=== PATIENT | female | born 1970 | race Caucasian/White ===

== ENCOUNTER 2017-05-14 15:30 | Emergency (ER) | payer OTHER ==
[~2017-05-14] VITALS: Ht 172.7 cm; Wt 123.7 kg
[2017-05-14] MEDS ORDERED: SODIUM CHLORIDE FLUSH 10ML SYR IVF ONE (16:00)
[2017-05-14] MEDS ORDERED: MORPHINE SULFATE 4 MG/ML, 1ML IVPush PRN (16:00)
[2017-05-14] MEDS ORDERED: ONDANSETRON 2MG/ML, 2ML IVPush ONE (16:00)
[2017-05-14] MEDS ORDERED: DIAZEPAM 5 MG TABLET PO ONE (16:00)
[2017-05-14] MEDS ORDERED: KETOROLAC 30 MG/1 ML IM ONE (16:00)
[2017-05-14] MEDS ORDERED: OMEP20TA62 PO (16:00)
[2017-05-14] MEDS ORDERED: HYDROcodone/APAP 5/325 TABLET PO ONE (16:00)
[2017-05-14 16:07] LABS: BLOOD UREA NITROGEN 10 mg/dL (7-18)
[2017-05-14] MEDS ORDERED: DIAZEPAM 5 MG TABLET ONE (16:12)
[2017-05-14 16:13] LABS: ASPARTATE AMINO TRANSFERASE 44 U/L (15-37)
[2017-05-14] MEDS ORDERED: KETOROLAC 30 MG/1 ML ONE (16:13)
[2017-05-14] MEDS ORDERED: HYDROcodone/APAP 5/325 TABLET ONE (16:13)
[2017-05-14 17:09] VITALS: BP 128/74
== END 2017-05-14 17:11 | disposition home or self-care (01) ==
LOC: ED 17:00
DX: S39.012A Strain of muscle, fascia and tendon of lower back, initial encounter (principal); I45.6 Pre-excitation syndrome; X58.XXXA Exposure to other specified factors, initial encounter; Y93.89 Activity, other specified; Y99.9 Unspecified external cause status; Y92.89 Other specified places as the place of occurrence of the external cause
CPT/HCPCS: 36415; 80053; 81003; 84703; 85025; J1885; 96372